=== PATIENT | male | born 1940 | race Caucasian/White ===

== ENCOUNTER 2017-05-16 16:43 | Emergency (ER) | payer OTHER ==
[~2017-05-16] VITALS: Ht 167.6 cm; Wt 77.1 kg
[2017-05-16 18:22] LABS: HEMATOCRIT 42.4 % (38.0-50.0); MCH 30.5 PG (29.0-34.0); MCV 92.4 FL (86-99); MEAN PLAT.VOLUME 9.9 uM^3 (9.0-12.4); PLATELET COUNT 265 K/uL (156-360); RBC DIS.WIDTH-CV 12.6 % (11.8-14.6); RBC DIS.WIDTH-SD 43.2 % (39-53); RED BLOOD COUNT 4.59 M/uL (4.00-5.50); WHITE BLOOD COUNT 6.6 K/uL (4.1-10.2)
[2017-05-16 18:26] LABS: ADD MIUA? NO; BILIRUBIN NEGATIVE; BLOOD NEGATIVE; COLOR STRAW ((YELLOW)); GLUCOSE (STRIP) >=500; KETONES NEGATIVE; LEUKOCYTES NEGATIVE; NITRITE NEGATIVE; PROTEIN (STRIP) NEGATIVE; SPECIFIC GRAVITY 1.006 (1.000-1.030); UCUL ADDED? NO; UROBILINOGEN 0.2 MG/DL (0.2-1.0)
[2017-05-16 18:36] LABS: CHLORIDE 107 mEq/L (99-109); POTASSIUM 3.5 mEq/L (3.7-5.4); SODIUM 141 mEq/L (136-147)
[2017-05-16 18:39] LABS: GLUCOSE 192 mg/dL (70-99)
[2017-05-16 18:40] LABS: ANION GAP 11 MEQ/L (2-14)
[2017-05-16 18:41] LABS: TOTAL BILIRUBIN 0.5 mg/dL (0.0-1.0)
[2017-05-16 18:42] LABS: ALKALINE PHOSPHATASE 66 IU/L (3-129); GFR ESTIMATE (CALCULATED) 45 mL/min/
[2017-05-16 18:43] LABS: UREA NITROGEN (BUN) 13 mg/dL (9-23)
[2017-05-16 18:51] LABS: TROP-I INTERPRETATION NEGATIVE; TROPONIN-I < 0.01 ng/mL (0.0-0.30)
[2017-05-16] MEDS ORDERED: ZITHROMAX Z-PA250 MG PO (21:06)
[2017-05-16] MEDS ORDERED: TESSALON PERLE100 MG PO (21:06)
[2017-05-16] MEDS ORDERED: VENTOLIN HFA18 GM IH (21:20)
[2017-05-16 21:36] LABS: TROP-I INTERPRETATION NEGATIVE; TROPONIN-I < 0.01 ng/mL (0.0-0.30)
[2017-05-16 22:09] VITALS: BP 145/89
== END 2017-05-16 22:10 | disposition home or self-care (01) ==
LOC: EME 16:43
PROVIDERS: Nurse Practitioner Family
DX: J06.9 Acute upper respiratory infection, unspecified (principal); Z87.891 Personal history of nicotine dependence
CPT/HCPCS: 71020; 80053; 81003; 83880; 84484; 85027; 93005; 94640; 99281; 99284